=== PATIENT | female | born 2000 | race African-American/Black ===

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

== ENCOUNTER 2018-08-15 02:06 | Emergency (ER) | payer OTHER ==
[~2018-08-15] VITALS: Ht 162.6 cm; Wt 54.4 kg
[~2018-08-15 02:06] MED LIST changes: +AMOXICILLIN 50500 M1 PO
[2018-08-15 03:51] VITALS: BP 139/97
== END 2018-08-15 03:45 | disposition home or self-care (01) ==
LOC: ER
DX: F10.129 Alcohol abuse with intoxication, unspecified (principal); E05.90 Thyrotoxicosis, unspecified without thyrotoxic crisis or storm